=== PATIENT | male | born 1995 | race Caucasian/White ===

== ENCOUNTER 2019-12-13 14:51 | Emergency (ER) | payer OTHER ==
[2019-12-13 14:58] VITALS: RESP 18; TEMP 98.8
[2019-12-13] MEDS ORDERED: HYDROcodone/APAP 7.5-325MG 1 EACH TAB PO ONE (15:03)
--- NOTE | 2019-12-13 16:04 | XR ---
EXAMINATION TYPE: XR knee complete RT DATE OF EXAM: 12/13/2019 COMPARISON: NONE HISTORY: 24-year-old male fall and knee pain TECHNIQUE: 3 views FINDINGS: No acute fracture, subluxation, dislocation. No knee joint effusion. Extensor mechanism appears intac t. IMPRESSION: No acute osseous abnormality seen.
--- NOTE | 2019-12-13 16:07 | ED ---
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 Patient denies dislocation. Patient denies any numbness tingling loss of sensation. He states pain increases with ambulation and weightbearing. Patient denies any pain at the hip or the ankle. Patient denies any injury to the head neck or back denies any injuries to the abdomen or chest. Immediately system negative upon arrival patient appears well besides acute distress. There is no obvious lacerations or open fractures. - Related Data Allergies Allergy/AdvReac Type Severity Reaction Status Date / Time No Known Allergies Allergy Verified 12/13/19 14:58 Review of Systems ROS Statement: Those systems with pertinent positive or pertinent negative responses have been documented in the HPI. ROS Other: All systems not noted in ROS Statement are negative. Past Medical History Past Medical History: No Reported History History of Any Multi-Drug Resistant Organisms: None Reported Past Surgical History: No Surgical Hx Reported Past Psychological History: No Psychological Hx Reported Smoking Status: Never smoker Past Alcohol Use History: Occasional Past Drug Use History: None Reported General Exam - General Exam Comments Initial Comments: General: The patient is awake and alert, in no distress Eye: Pupils are equal, round and reactive to light, extra-ocular movements are intact. No nystagmus. There is normal conjunctiva bilaterally. No signs of icterus. Cardiovascular: There is a regular rate and rhythm. No murmur, rub or gallop is appreciated. Respiratory: Lungs are clear to auscultation, respirations are non-labored, breath sounds are equal. No wheezes, stridor, rales, or rhonchi. Musculoskeletal: Upon section or legs bilaterally there is no obvious soft tissue swelling or gross abnormalities of the knees. Patient is tender to the patient of the anterior knee joint. There is no noted laxity. Patient is full range of motion however this is tender. Patient has no tenderness with log roll and pain at the hip patient has no tenderness at the ankle joint. No hematomas noted. Extensor mechanism intact Normal ROM, no tenderness of ankles hips. Strength 5/5. Sensation intact. DP pulses equal bilaterally 2+. Neurological: A&O x 3. CN II-XII intac grossly, There are no obvious motor or sensory deficits. Coordination appears grossly intact. Speech is normal. Skin: Skin is warm and dry and no rashes or lesions are noted. Psychiatric: Cooperative, appropriate mood & affect, normal judgment. Limitations: no limitations Course Vital Signs 12/13/19 12/13/19 12/13/19 14:54 15:30 16:00 Temperature 98.8 F Pulse Rate 107 H 98 Respiratory 18 18 Rate Blood Pressure 157/93 153/92 130/69 O2 Sat by Pulse 98 96 95 Oximetry Medical Decision Making - Medical Decision Making 24-year-old male presented for right knee pain after injury at work. Patient complaining of right knee pain he does appear to have discomfort when the area is ranged. No obvious laxity. Indices reveal no acute osseous process, cannot rule out ligamentous injury. Patient had no dislocation. Patient neurovas cularly intact. Minimal pus was placed discussed the importance of ice treatment follow-up with orthopedic surgery and crutches for ambulation. Patient verbalized understanding is agreeable to this Eye discharge at this time. Patient no other complaints are noted areas of injury. Case discussed with Dr. Hart patient discharged appearing well Disposition Clinical Impression: Right knee injury, Right knee pain, Right knee sprain Disposition: HOME SELF-CARE Condition: Good Instructions (If sedation given, give patient instructions): Knee Sprain (ED), R.I.C.E. Treatment (ED) Additional Instructions: Please use medication as discussed. Please follow-up with family doctor in the next 2 days, follow-up with orthopedic for further evaluation of ligaments. Use crutches and knee immmobilizer for comfort during ambulation. Please return to emergency room if the symptoms increase or worsen or for any other concerns. Is patient prescribed a controlled substance at d/c from ED?: No Referrals: Elen Peters MD [Primary Care Provider] - 1-2 days Malik Vaughan DO [Doctor of Osteopathic Medicine] - 1-2 days Time of Disposition: 16:06
[2019-12-13 16:31] VITALS: BP 130/69; PULSE 98
== END 2019-12-13 16:30 | disposition home or self-care (01) ==
LOC: EC 14:51
DX: S83.91XA Sprain of unspecified site of right knee, initial encounter (principal); X50.9XXA Other and unspecified overexertion or strenuous movements or postures, initial encounter; Y92.69 Other specified industrial and construction area as the place of occurrence of the external cause; Y99.0 Civilian activity done for income or pay
CPT/HCPCS: 99283

== ENCOUNTER → 2019-12-21 | Outpatient (CLI) | payer OTHER ==
--- NOTE | 2019-12-21 17:49 | MR ---
EXAMINATION TYPE: MR knee RT wo con DATE OF EXAM: 12/21/2019 COMPARISON: HISTORY: RT KNEE PAIN TECHNIQUE: Multiplanar, multisequence images of the knee is performed on a 1.5 Leigha magnet without IV contrast. FINDINGS: MEDIAL MENISCUS: There is mild increased signal within the posterior horn medial meniscus compatible some mild internal derangement or degenerative change. Anterior horn medial meniscus appears intact. LATERAL MENISCUS: There is increased signal within the posterior horn lateral meniscus compatible wit h internal derangement or degenerative change is more mild than on the medial side. Anterior horn lat eral meniscus appears intact. CRUCIATE LIGAMENTS: The anterior and posterior cruciate ligaments are intact and unremarkable. COLLATERAL LIGAMENTS: The medial collateral ligament and lateral collateral ligament complex are inta ct and unremarkable. EXTENSOR MECHANISM: Visualized quadriceps and patellar tendons are intact. EFFUSION: No significant suprapatellar joint effusion. POPLITEAL CYST: No popliteal/shen cyst. TRICOMPARTMENT SPACES: Joint spaces appear preserved. CARTILAGE: Intact BONE MARROW SIGNAL: There is increased signal within the posterior tibial plateau both medially and l aterally could be related to contusion. No additional abnormal signal is evident. OTHER: No additional significant abnormality is appreciated. IMPRESSION: 1. Posterior tibial plateau contusion both medially and laterally. No contrecoup contusion is evident however. 2. Posterior horn medial and lateral menisci internal derangement or degenerative change.
== END | disposition home or self-care (01) ==
LOC: RADMRIMAIN 13:13
PROVIDERS: ATTEND Emergency Medicine
DX: S80.01XD Contusion of right knee, subsequent encounter (principal)

== ENCOUNTER → 2020-02-20 | Outpatient (CLI) | payer OTHER | END | disposition home or self-care (01) | LOC: LABWHC1 09:57 | PROVIDERS: ATTEND Orthopaedic Surgery | DX: Z11.59 Encounter for screening for other viral diseases (principal) ==

== ENCOUNTER 2020-02-22 09:51 | Day surgery (SDC) | payer OTHER ==
[2020-02-21 11:17] VITALS: BMI 28.7
--- NOTE | 2020-02-21 14:04 | HP ---
HISTORY AND PHYSICAL DATE OF SURGERY: 02/22/2020 Sherri Malone is a 24-year-old patient seen with right knee pain and instability with history of meniscal tear and anterior cruciate ligament tear. We discussed surgical intervention including partial medial meniscectomy, allograft ACL reconstruction. He was agreeable and consent was obtained regarding proceed with the procedure. PAST MEDICAL HISTORY: Noncontributory. PAST SURGICAL HISTORY: Noncontributory. DAILY MEDICATIONS: None. ALLERGIES: None. SOCIAL HISTORY: Denies tobacco use. PHYSICAL EVALUATION OF THE RIGHT KNEE: His range of motion is 0-130. He has tenderness along the medial joint line. Positive medial Karlene's, +2/3 Delaney's, positive pivot shift. Collateral ligaments are stable. Distal neurovascular exam is intact. RADIOGRAPHS: Radiographs of the right knee revealed no osseous abnormality. MRI of the right knee revealed anterior cruciate ligament tear, medial meniscal tear and possible lateral meniscal tear. IMPRESSION: Internal derangement, right knee with medial meniscal tear and anterior cruciate ligament tear. PLAN: Right knee arthroscopy with allograft ACL reconstruction, partial meniscectomy, partial synovectomy and debridement. MMODL / IJN: [id number] /
[~2020-02-22 09:51] MED LIST: DEXAMETHASONE SOD PHOSPHATE 10 MG/ML 1 ML VIAL IV ONE; LACTATED RINGERS 1,000 ML IV SCH; ONDANSETRON 4 MG/2 ML VIAL IVP ONE
[2020-02-22] MEDS ORDERED: fentaNYL (PF) 50 MCG/ML 2 ML AMP ONE (11:00)
[2020-02-22] MEDS ORDERED: LIDOCAINE 1% INJ 10MG/ML (20 ML MDV) ONE (11:00)
[2020-02-22] MEDS ORDERED: MIDAZOLAM 2 MG/2 ML VIAL ONE (11:00)
[2020-02-22] MEDS ORDERED: SUCCINYLCHOLINE CHLORIDE 100 MG/5 ML SYR IV ONE (11:00)
[2020-02-22] MEDS ORDERED: PROPOFOL 10 MG/ML 20 ML VIAL IV ONE (11:00)
[2020-02-22] MEDS ORDERED: BUPIVACAINE (PF) 0.25% 30 ML VIAL SQ ONE (12:35)
[2020-02-22 13:00] VITALS: TEMP 97.4
--- NOTE | 2020-02-22 13:06 | P.OP ---
Date of Procedure: 02/22/20 Preoperative Diagnosis: Internal derangement right knee Postoperative Diagnosis: 1. ACL tear right knee 2. Lateral meniscal tear right knee 3. Reactive synovitis medial, lateral and suprapatellar compartments right knee Procedure(s) Performed: 1. Arthroscopic allograft ACL reconstruction right knee 2. Arthroscopic partial lateral meniscectomy right knee 3. Arthroscopic partial synovectomy medial, lateral and suprapatellar compartments right knee Implants: 2Arthrex Endobuttons Anesthesia: ISIDOROA, local Surgeon: Hasmukh Davila Supervisor Cabinetmaker #1: Jonathon Emerson Estimated Blood Loss (ml): 15 Pathology: none sent Condition: stable Disposition: PACU Indications for Procedure: 24-year-old patient seen with progressive right knee pain as well as instability consistent with ACL tear. We discussed options. He elected to proceed with allograft ACL reconstruction right knee, consent was obtained. Operative Findings: See description of procedure Description of Procedure: Patient was taken to the operative suite. Patient underwent a general anesthetic by the department of anesthesia. Patient was given preoperative antibiotics. The right lower extremity was placed in a well-padded arthroscopic leg morelos. The right leg was prepped and draped in the normal sterile orthopedic fashion. A lateral parapatellar incision was made. Trochars were inserted. Arthroscopy was initiated. Suprapatellar pouch revealed diffuse thick reactive synovitis. The patellofemoral joint appeared to articulate congruently. There was no chondromalacia present. The scope was guided into the medial gutter.. No loose bodies or plica were identified. The scope was then guided into the medial compartment. A medial parapatellar incision was made. Trocar inserted followed by probe. The medial meniscus was probed and found be stable. There was some reactive synovitis anteriorly. There was no chondromalacia. Scope and probe were then guided into the intercondylar notch. There was a complete anterior cruciate ligament tear. The posterior cruciate ligament appeared stable. At this point Joaquín MERCEDES began preparing the tendon allograft for implantation.. The scope and probe were then guided into lateral compartment. There was a small radial tear posterior horn lateral meniscus. There was no chondromalacia. There was some reactive synovitis anteriorly. I performed a partial lateral meniscectomy. I performed a partial synovectomy. There was good decompression of synovitis. The residual meniscus was stable. I guided the scope back into the medial compartment performed a partial synovectomy there decompressing reactive synovitis. I now guided the scope back into the intercondylar notch. I debrided out the remnant ACL. I performed a notchplasty. I now created both femoral and tibial tunnels. The graft was now shuttled into the tunnels. It was secured on the femoral side with a Endobutton and our we secured on the tibial side with another Endobutton. We now tensioned the tibial side and sutured down. We now tensioned the femoral side. We noted excellent placement of the graft and good overall stability of the knee intraoperatively. Residual suture limbs were clipped. The scope was guided back into the super patellar compartment. I debrided some debris as well as performed a partial synovectomy. Instruments were now trever du from the joint. The joint was infiltrated with .25% Marcaine. Nylon sutures were applied to the portal sites and the medial mini incision.. Sterile dressings were applied. The patient was placed into a RAMON hose. No tourniquet was utilized. The patient was awakened, transferred to a bed and taken to recovery stable satisfactory condition. Joaquín MERCEDES assisted with this procedure.
[2020-02-22] MEDS: HYDROmorphone 0.5 MG/0.5 ML SYRINGE IVP PRN ×4 (13:15→13:30)
[2020-02-22] MEDS ORDERED: HYDROcodone/APAP 7.5-325MG 1 EACH TAB PO ONE (13:58)
[2020-02-22 14:23] VITALS: RESP 16
[2020-02-22 14:39] VITALS: BP 130/75; PULSE 86
== END 2020-02-22 14:50 | disposition home or self-care (01) ==
LOC: OR 09:51
PROVIDERS: ATTEND Orthopaedic Surgery
DX: S83.511A Sprain of anterior cruciate ligament of right knee, initial encounter (principal); S83.281A Other tear of lateral meniscus, current injury, right knee, initial encounter; M65.861 Other synovitis and tenosynovitis, right lower leg; X58.XXXA Exposure to other specified factors, initial encounter
CPT/HCPCS: 29881; 29888; C1713 ×3; C1762; J2250; J1100; J0690; J2405; J2001; J3010; J0330; J2704; J1170

== ENCOUNTER → 2024-11-13 | Outpatient (CLI) | payer OTHER ==
--- NOTE | 2024-11-13 14:48 | XR ---
EXAMINATION TYPE: XR shoulder complete LT DATE OF EXAM: 11/13/2024 2:29 PM COMPARISON: None. CLINICAL INDICATION: Male, 29 years old with history of STRAIN UNSP MUSC/FASC/TEND AT SHLDR/UP ARM, L EFT ARM, INIT, Pain TECHNIQUE: XR shoulder complete LT 3 view(s) obtained. FINDINGS: The humeral head articulates with the glenoid. The acromio-clavicular junction is normal. No acute fractures or dislocations are evident. If there is clinical concern for acromioclavicular joint separation, and without weight AC joint eval uation can be performed. A follow up study can be performed 7-10 days from acute trauma for continued pain. MRI can be perfor med if soft tissue evaluation would be of benefit. IMPRESSION: 1. No acute osseous left shoulder abnormality. [facility], , 11/13/2024 2:46 PM
== END | disposition home or self-care (01) ==
LOC: RADXRMAIN 14:18
PROVIDERS: ATTEND Emergency Medicine
DX: S46.912A Strain of unspecified muscle, fascia and tendon at shoulder and upper arm level, left arm, initial encounter (principal); X58.XXXA Exposure to other specified factors, initial encounter